=== PATIENT | female | born 1975 | race American Indian/Alaskan Native ===

== ENCOUNTER 2018-07-26 04:56 | Emergency (ER) | payer OTHER ==
[2018-07-26 05:07] VITALS: BP 186/107
[2018-07-26] MEDS ORDERED: IBUPROFEN PO ONE (06:05)
[2018-07-26] MEDS ORDERED: BENADRYL PO ONE (06:05)
[2018-07-26] MEDS ORDERED: TETRACAINE 0.5% OU ONE (06:06)
--- NOTE | 2018-07-26 06:12 | Emergency Department Report ---
[facility] Chief Complaint: Eye Problems Stated Complaint: EYE IRRITATION Time Seen by Provider: 07/26/18 06:04 Duration: 2 Days Severity: moderate Symptoms: Yes Eye Itching, Yes Eye Redness, Yes Eye Pain, Yes Mucous Drainage, No Purulent Drainage, No Blurred Vision, No Preceding URI, No H/O Allergic Rhinitis, No Contact Lens Use, No Trauma, No Fever, No Headache Other History: Patient received clonidine in her right eye 2 days ago both eyes now both eyes irritated red cleared drainage there is no fever no chills no decrease in vision no swelling ED Review of Systems ROS: Stated complaint: EYE IRRITATION Other details as noted in HPI Constitutional: denies: chills, fever Eyes: eye pain, eye discharge ENT: denies: ear pain, throat pain Respiratory: denies: cough, shortness of breath, wheezing Cardiovascular: denies: chest pain, palpitations Endocrine: no symptoms reported Gastrointestinal: denies: abdominal pain, nausea, diarrhea Genitourinary: denies: urgency, dysuria, discharge Musculoskeletal: denies: back pain, joint swelling, arthralgia Skin: denies: rash, lesions Neurological: denies: headache, weakness, paresthesias Psychiatric: denies: anxiety, depression Hematological/Lymphatic: denies: easy bleeding, easy bruising ED Past Medical Hx - Past Medical History Previous Medical History?: No Hx Seizures: Yes (childhood) Hx Asthma: Yes (childhood) - Surgical History Past Surgical History?: No - Social History Smoking Status: Never Smoker Substance Use Type: None - Medications Home Medications: Home Medications Medication Instructions Recorded Confirmed Last Taken Type Cyclobenzaprine [Flexeril] 10 mg PO TID PRN #30 tablet 04/21/15 Unknown Rx HYDROcodone/APAP 5-325 [[place] 1 each PO Q6HR PRN #20 tablet 04/21/15 Unknown Rx 5/325] Ibuprofen [Motrin] 600 mg PO Q8H PRN #50 tablet 04/21/15 Unknown Rx Cetirizine HCl [Zyrtec] 10 mg PO DAILY #30 tablet 07/26/18 Unknown Rx Ibuprofen 800 mg PO TID PRN #30 tablet 07/26/18 Unknown Rx Polymyxin B Sulf/Trimethoprim 10 ml OP Q4H #10 ml 07/26/18 Unknown Rx [Polytrim Eye Drops] [facility] Exam - Exam General: Vital signs noted. No distress. Alert and acting appropriately. Eye Exam: Both Injection, Both EOMI, Both Mucous Discharge, Neither Chemosis, Neither Abnormal Pupil, Neither Eye Foreign Body, Neither Lid Foreign Body, Neither Purulent Discharge, Neither Corneal Edema, Neither Photophobia HEENT: No Nasal Congestion, No Pharyngeal Erythema Remainder of HEENT: Normal Lungs: Yes Clear Lung Sounds, Yes Good Air Exchange, No Wheezes, No Stridor, No Cough, No Nasal Flaring, No Retractions, No Use of Accessory Muscles ED Course Vital Signs 07/26/18 07/26/18 05:03 05:52 Temperature 98.1 F Pulse Rate 87 Respiratory 18 18 Rate Blood Pressure 186/107 O2 Sat by Pulse 98 Oximetry ED Medical Decision Making - Medical Decision Making As irrigated with sterile saline after tetracaine injection lids inverted and swept no foreign body no corneal abraisions to flourscene and cobb lamp examp, eye irrigated with sterile saline. This is straightforward conjunctivitis and no decrease in vision is 20/20 bilaterally patient has PERRLA EOMI there is no purulent drainage drainage is clear plan Polytrim Benadryl ibuprofen follow-up with ophthalmology today patient verbalized an understanding of same patient is to home in stable condition at this time Critical care attestation.: If time is entered above; I have spent that time in minutes in the direct care of this critically ill patient, excluding procedure time. ED Disposition Clinical Impression: Conjunctivitis Qualifiers: Conjunctivitis type: acute Acute conjunctivitis type: unspecified Laterality: bilateral Qualified Code(s): H10.33 - Unspecified acute conjunctivitis, bilateral Disposition: - TO HOME OR SELFCARE Is pt being admited?: No Does the pt Need Aspirin: No Condition: Stable Instructions: Conjunctivitis (ED) Prescriptions: Ibuprofen 800 mg PO TID PRN #30 tablet PRN Reason: pain Polymyxin B Sulf/Trimethoprim [Polytrim Eye Drops] 10 ml OP Q4H #10 ml Cetirizine HCl [Zyrtec] 10 mg PO DAILY #30 tablet Referrals: ALLIE COTTO MD [Staff Physician] - 3-5 Days [facility] [Outside] - 3-5 Days Forms: Work/School Release Form(ED) Time of Disposition: 06:16
== END 2018-07-26 06:22 | disposition home or self-care (01) ==
LOC: ED 04:56
DX: H10.33 Unspecified acute conjunctivitis, bilateral (principal); J45.909 Unspecified asthma, uncomplicated; Z79.899 Other long term (current) drug therapy
CPT/HCPCS: 99282

== ENCOUNTER 2018-07-28 17:18 | Emergency (ER) | payer OTHER ==
--- NOTE | 2018-07-28 18:10 | Emergency Department Report ---
Blank Doc - Documentation Documentation: 42 y o female presents to ER cc of bilateral eye burning and redness x 3 days denies trauma, contact use denies vison loss states drops not working [facility] reevaluate
--- NOTE | 2018-07-28 21:40 | Emergency Department Report ---
[facility] Chief Complaint: Eye Problems Stated Complaint: EYE IRRITATION Time Seen by Provider: 07/28/18 18:08 Side: Bilateral Severity: moderate Symptoms: Yes Eye Itching, Yes Eye Redness, Yes Mucous Drainage, Yes H/O Ethna rgic Rhinitis, No Blurred Vision, No Preceding URI, No Contact Lens Use, No Trauma, No Fever, No Headache Other History: recurrent conjuntivitis no improved with polytrim ED Review of Systems ROS: Stated complaint: EYE IRRITATION Other details as noted in HPI Constitutional: denies: chills, fever Eyes: eye discharge ENT: denies: ear pain, throat pain Respiratory: denies: cough, shortness of breath, wheezing Cardiovascular: denies: chest pain, palpitations Endocrine: no symptoms reported Gastrointestinal: denies: abdominal pain, nausea, diarrhea Genitourinary: denies: urgency, dysuria, discharge Musculoskeletal: denies: back pain, joint swelling, arthralgia Skin: denies: rash, lesions Neurological: denies: headache, weakness, paresthesias Psychiatric: denies: anxiety, depression Hematological/Lymphatic: denies: easy bleeding, easy bruising ED Past Medical Hx - Past Medical History Hx Seizures: Yes (childhood) Hx Asthma: Yes (childhood) - Social History Smoking Status: Never Smoker Substance Use Type: None - Medications Home Medications: Home Medications Medication Instructions Recorded Confirmed Last Taken Type Cyclobenzaprine [Flexeril] 10 mg PO TID PRN #30 tablet 04/21/15 Unknown Rx HYDROcodone/APAP 5-325 [[place] 1 each PO Q6HR PRN #20 tablet 04/21/15 Unknown Rx 5/325] Ibuprofen [Motrin] 600 mg PO Q8H PRN #50 tablet 04/21/15 Unknown Rx Cetirizine HCl [Zyrtec] 10 mg PO DAILY #30 tablet 07/26/18 Unknown Rx Ibuprofen 800 mg PO TID PRN #30 tablet 07/26/18 Unknown Rx Polymyxin B Sulf/Trimethoprim 10 ml OP Q4H #10 ml 07/26/18 Unknown Rx [Polytrim Eye Drops] Cetirizine HCl [Zyrtec] 10 mg PO DAILY #30 tablet 07/28/18 Unknown Rx Ibuprofen 800 mg PO TID PRN #30 tablet 07/28/18 Unknown Rx Ofloxacin 2 drops OP Q3H 10 Days #5 ml 07/28/18 Unknown Rx [facility] Exam - Exam General: Vital signs noted. No distress. Alert and acting appropriately. Eye Exam: Both Injection, Both EOMI, Both Mucous Discharge, Neither Chemosis, Neither Abnormal Pupil, Neither Eye Foreign Body, Neither Lid Foreign Body, Neither Purulent Discharge, Neither Corneal Edema, Neither Photophobia HEENT: No Nasal Congestion, No Pharyngeal Erythema Remainder of HEENT: Normal Lungs: Yes Clear Lung Sounds, Yes Good Air Exchange, No Wheezes, No Stridor, No Cough, No Nasal Flaring, No Retractions, No Use of Accessory Muscles ED Course Vital Signs 07/28/18 18:07 Temperature 98.0 F Pulse Rate 83 Respiratory 18 Rate Blood Pressure 162/118 O2 Sat by Pulse 96 Oximetry ED Medical Decision Making - Medical Decision Making this is conjunctivitis visual acuity 20/40 bilat , plan, change abx to cipro opthal, zyrec, ibuprofen follow up with ophthalmology tomorrow pt verbalized agreement and understanding with discharge plan. Critical care attestation.: If time is entered above; I have spent that time in minutes in the direct care of this critically ill patient, excluding procedure time. ED Disposition Clinical Impression: Conjunctivitis Qualifiers: Conjunctivitis type: acute Acute conjunctivitis type: unspecified Laterality: bilateral Qualified Code(s): H10.33 - Unspecified acute conjunctivitis, bilateral Disposition: - TO HOME OR SELFCARE Is pt being admited?: No Does the pt Need Aspirin: No Condition: Stable Prescriptions: Ibuprofen 800 mg PO TID PRN #30 tablet PRN Reason: pain Ofloxacin 2 drops OP Q3H 10 Days #5 ml Cetirizine HCl [Zyrtec] 10 mg PO DAILY #30 tablet Referrals: KIKA LIGHT MD [Primary Care Provider] - 3-5 Days ALLIE COTTO MD [Staff Physician] - 3-5 Days Forms: Work/School Release Form(ED) Time of Disposition: 21:40
== END 2018-07-28 21:46 | disposition home or self-care (01) ==
LOC: ED 17:18
CPT/HCPCS: 99282

== ENCOUNTER 2020-08-27 20:26 | Emergency (ER) | payer SELFPAY ==
--- NOTE | 2020-08-27 21:11 | Emergency Department Report ---
ED General Adult HPI - General Stated complaint: LEFT SIDE PAIN/NUMBNESS Time Seen by Provider: 08/27/20 21:06 - History of Present Illness Initial comments: 44-year-old female patient presents to the emergency department with complaints of nontraumatic lower back pain radiating down her left lower extremity with intermittent numbness for several months, worsening over the last 4 days. Patient was evaluated for similar symptoms at this hospital a few years ago. States she took 1 ibuprofen approximately 6 hours ago. She does not have a primary care provider. Denies fever, chills, nausea, vomiting, diarrhea, urinary retention, bladder/bowel incontinence, saddle anesthesia. Denies all other complaints at this time. - Related Data Previous Rx's Medication Instructions Recorded Last Taken Type Cyclobenzaprine [Flexeril] 10 mg PO TID PRN #30 tablet 04/21/15 Unknown Rx HYDROcodone/APAP 5-325 [[place] 1 each PO Q6HR PRN #20 tablet 04/21/15 Unknown Rx 5/325] Ibuprofen [Motrin] 600 mg PO Q8H PRN #50 tablet 04/21/15 Unknown Rx Cetirizine HCl [Zyrtec] 10 mg PO DAILY #30 tablet 07/26/18 Unknown Rx Ibuprofen [Ibuprofen 800] 800 mg PO TID PRN #30 tablet 07/26/18 Unknown Rx Polymyxin B Sulf/Trimethoprim 10 ml OP Q4H #10 ml 07/26/18 Unknown Rx [Polytrim Eye Drops] Cetirizine HCl [Zyrtec] 10 mg PO DAILY #30 tablet 07/28/18 Unknown Rx Ibuprofen 800 mg PO TID PRN #30 tablet 07/28/18 Unknown Rx Ofloxacin [Ofloxacin 0.3%] 2 drops OP Q3H 10 Days #5 ml 07/28/18 Unknown Rx Clindamycin Phos/Benzoyl Perox 25 gm TP BID #1 gel..gram. 09/25/19 Unknown Rx [Clindamycin-Benzoyl Perox 1-5%] Doxycycline Hyclate [Doxycycline 100 mg PO BID 7 Days #14 tab 09/25/19 Unknown Rx Hyclate TAB] Lidocaine [Lidoderm] 1 each TP BID #20 adh..patch 08/27/20 Unknown Rx Naproxen 500 mg PO BID #20 tablet 08/27/20 Unknown Rx Allergies Allergy/AdvReac Type Severity Reaction Status Date / Time No Known Allergies Allergy Verified 07/28/18 18:07 ED Review of Systems ROS: Stated complaint: LEFT SIDE PAIN/NUMBNESS Other details as noted in HPI Other: GENERAL: Negative for fever, chills, weight change, anorexia, fatigue. ENT: Negative for ear pain, difficulty hearing, sore throat, nasal congestion, epistaxis. CARDIOVASCULAR: Negative for chest pain, palpitations, lower extremity swelling. PULMONARY: Negative for cough, dyspnea, wheezing, orthopnea, cyanosis. GASTROINTESTINAL: Negative for abdominal pain, nausea, vomiting, diarrhea, constipation. MUSCULOSKELETAL: Positive for back pain. NEUROLOGICAL: Positive for numbness. INTEGUMENTARY: Negative for erythema, rash, diaphoresis, laceration, ecchymosis. HEMATOLOGICAL: Negative for hemoptysis, hematemesis, hematochezia, hematuria. PSYCHIATRIC: Negative for hallucinations, suicidal ideation, homicidal ideation, anxiety, depression. ED Past Medical Hx - Past Medical History Hx Seizures: Yes (childhood) Hx Asthma: Yes (childhood) - Social History Smoking Status: Never Smoker Substance Use Type: None - Medications Home Medications: Home Medications Medication Instructions Recorded Confirmed Last Taken Type Cyclobenzaprine [Flexeril] 10 mg PO TID PRN #30 tablet 04/21/15 Unknown Rx HYDROcodone/APAP 5-325 [[place] 1 each PO Q6HR PRN #20 tablet 04/21/15 Unknown Rx 5/325] Ibuprofen [Motrin] 600 mg PO Q8H PRN #50 tablet 04/21/15 Unknown Rx Cetirizine HCl [Zyrtec] 10 mg PO DAILY #30 tablet 07/26/18 Unknown Rx Ibuprofen [Ibuprofen 800] 800 mg PO TID PRN #30 tablet 07/26/18 Unknown Rx Polymyxin B Sulf/Trimethoprim 10 ml OP Q4H #10 ml 07/26/18 Unknown Rx [Polytrim Eye Drops] Cetirizine HCl [Zyrtec] 10 mg PO DAILY #30 tablet 07/28/18 Unknown Rx Ibuprofen 800 mg PO TID PRN #30 tablet 07/28/18 Unknown Rx Ofloxacin [Ofloxacin 0.3%] 2 drops OP Q3H 10 Days #5 ml 07/28/18 Unknown Rx Clindamycin Phos/Benzoyl Perox 25 gm TP BID #1 gel..gram. 09/25/19 Unknown Rx [Clindamycin-Benzoyl Perox 1-5%] Doxycycline Hyclate [Doxycycline 100 mg PO BID 7 Days #14 tab 09/25/19 Unknown Rx Hyclate TAB] Lidocaine [Lidoderm] 1 each TP BID #20 adh..patch 08/27/20 Unknown Rx Naproxen 500 mg PO BID #20 tablet 08/27/20 Unknown Rx ED Physical Exam - Other Other exam information: General: Awake and alert. No acute distress. Head: Atraumatic, normocephalic. Eyes: EOMI. Pupils are equal and round. Normal sclera and conjunctiva. ENT: Oral mucosa is moist. Normal pharyngeal exam. Neck: Supple. No lymphadenopathy. Pulmonary: No respiratory distress. Clear to auscultation bilaterally. Cardiac: Regular rate and rhythm. Pulses are palpable and equal bilaterally. No lower extremity cyanosis or edema. Skin: Warm and dry. No rashes. Abdomen: Soft, non-tender, non-protuberant. No guarding, rigidity, or rebound. Bowel sounds are normal. No organomegaly or masses noted. Back: Normal alignment. No CVA tenderness. No midline lumbar tenderness. No step-offs. There is left lumbar paraspinal tenderness without palpable muscle spasm. Patellar deep tendon reflexes are 2+ and symmetric. No saddle anesthesia. Positive straight leg raise on left. Pain reproducible with flexion of left great toe against resistance. Ambulatory without assistance. Distal neurovascular and motor/sensory function intact. Extremities: Symmetrical. Full range of motion intact. Neurological: Alert and oriented, appropriately interactive, no focal deficits. Psych: Cooperative. Appropriate mood and affect. Speech is evenly metered. Thoughts are logically construed. ED Course Vital Signs 08/27/20 21:06 Temperature 98.4 F Pulse Rate 86 Respiratory 18 Rate Blood Pressure 215/117 O2 Sat by Pulse 97 Oximetry ED Medical Decision Making - Medical Decision Making Differential diagnosis including but not limited to: cauda equina syndrome, disc herniation, sciatica, discitis, spinal epidural abscess, spinal stenosis, lumbar strain/sprain, compression fracture Patient presents emergency department with complaints of acute exacerbation of chronic radicular low back pain. The patient is not exhibiting any numbness, tingling, or loss of strength. There is no acute urinary incontinence or retention and no bowel incontinence or retention. There is no saddle anesthesia. The patient is afebrile and neurovascularly intact. No clinical evidence for acute nerve compression (such as cauda equine syndrome) or infection (such as epidural abscess). It has been explained to the patient that advanced imaging such as CT or MRI is not indicated at this time but should be considered if symptoms recur or worsen. Discharged home with appropriate prescriptions and instructions to follow up with primary care provider. Strict return precautions provided. Emphasized the importance of outpatient follow-up and specific signs/symptoms that should warrant immediate return to the emergency department. Patient expressed understanding and was given the opportunity to ask questions, all of which were satisfactorily answered prior to discharge home. Of note, patient's blood pressure was noted to be elevated in the emergency department on arrival. No clinical evidence to suggest hypertensive emergency warranting further diagnostic work-up at this time. Blood pressure improved after analgesics. Patient's hypertension likely attributable to pain; however, she was encouraged to notify her primary care provider of her elevated blood pressure reading for further evaluation on an outpatient basis. Critical care attestation.: If time is entered above; I have spent that time in minutes in the direct care of this critically ill patient, excluding procedure time. ED Disposition Clinical Impression: Left lumbar radiculopathy, Elevated blood pressure reading Disposition: DC-01 TO HOME OR SELFCARE Is pt being admited?: No Does the pt Need Aspirin: No Condition: Stable Instructions: Radicular Pain Additional Instructions: Take Tylenol every 4 hours as needed for pain. Take Naprosyn twice daily with food as needed for pain. Apply Lidoderm patches to affected area as needed for pain. Apply heat to affected area as needed for pain. Gradually advance physical activity slowly as tolerated. Follow-up with Dr. Nino, primary care provider, within 1 week. Call tomorrow to schedule an appointment. Primary care provider can help you arrange physical therapy and/or outpatient MRI for further evaluation, if needed. Additionally, please follow up with primary care provider regarding your blood pressure. Return to the emergency department immediately for new or worsening symptoms. Specifically, return to the emergency department immediately for fever, loss of bladder/bowel control, inability to use the bathroom, worsening numbness, inability to walk, or any other concerns. Prescriptions: Lidocaine [Lidoderm] 1 each TP BID #20 adh..patch Naproxen 500 mg PO BID #20 tablet Referrals: KOSTA NINO MD [Staff Physician] - 3-5 Days Forms: Work/School Release Form Time of Disposition: 21:19
[2020-08-27] MEDS ORDERED: KETOROLAC 30 MG/1 ML INJ IM ONE (21:16)
[2020-08-27] MEDS ORDERED: ACETAMINOPHEN 500 MG TAB PO ONE (21:16)
[2020-08-27 22:16] VITALS: BP 180/100
== END 2020-08-27 22:00 | disposition home or self-care (01) ==
LOC: ED 20:26
DX: M54.16 Radiculopathy, lumbar region (principal); R03.0 Elevated blood-pressure reading, without diagnosis of hypertension; G40.909 Epilepsy, unspecified, not intractable, without status epilepticus; J45.909 Unspecified asthma, uncomplicated; Z79.899 Other long term (current) drug therapy
CPT/HCPCS: 96372; 99282; J1885